=== PATIENT | male | born 1950 | race Hispanic/Latino ===

== ENCOUNTER → 2017-09-05 | Outpatient (CLI) | payer OTHER | END | disposition home or self-care (01) | LOC: RAH 10:31 | PROVIDERS: ATTEND Family Medicine | DX: R13.10 Dysphagia, unspecified (principal) | CPT/HCPCS: 74230; 92611 ==

== ENCOUNTER → 2018-06-11 | Outpatient (CLI) | payer OTHER | END | disposition home or self-care (01) | LOC: RAH 10:52 | PROVIDERS: ATTEND Family Medicine | DX: R13.10 Dysphagia, unspecified (principal) | CPT/HCPCS: 74230; 92611; G8996; G8997; G8998 ==

== ENCOUNTER 2022-05-14 06:23 | Day surgery (SDC) | payer OTHER ==
[2022-05-10 10:49] LABS: BASOPHILS % (AUTO) 0.4 % (0.0-5.0); EOSINOPHILS % (AUTO) 1.3 % (0.0-8.0); HEMATOCRIT 41.3 % (42-54); MEAN CORPUSCULAR HEMOGLOBIN 29.8 pg (27.0-33.0); MEAN CORPUSCULAR HGB CONC 34.9 g/dL (32.0-36.0); MEAN CORPUSCULAR VOLUME 85.5 fL (79-99); NEUTROPHILS % (AUTO) 73.1 % (40.0-77.0); PLATELET COUNT (AUTO) 202 K/uL (130-400); RED BLOOD CELL COUNT(AUTO) 4.83 MIL/uL (4.50-6.20); WHITE BLOOD COUNT (AUTO) 8.4 K/uL (4.8-10.8)
[2022-05-10 11:01] LABS: INR 0.95 (0.85-1.15); PROTHROMBIN TIME 10.4 SEC (9.6-11.6)
[2022-05-10 11:03] LABS: PARTIAL THROMBOPLASTIN TIME 24.2 SEC (26.3-35.5)
[2022-05-10 11:06] LABS: POTASSIUM 3.7 mmol/L (3.5-5.1)
[2022-05-10 11:20] LABS: APPEARANCE,URINE CLEAR (CLEAR); BILIRUBIN,URINE NEGATIVE (NEGATIVE); COLOR,URINE LIGHT-YELLOW (YELLOW); GLUCOSE, URINE (UA) >=1000 mg/dL (NEGATIVE); KETONES,URINE NEGATIVE (NEGATIVE); LEUKOCYTE ESTERASE ,URINE NEGATIVE Leu/uL (NEGATIVE); NITRATE,URINE NEGATIVE (NEGATIVE); OCCULT BLOOD,URINE NEGATIVE (NEGATIVE); PH,URINE 5.5 (5.0-8.0); PROTEIN,URINE 50 mg/dL (NEGATIVE); UROBILINOGEN,URINE 0.2 mg/dL (0.2-1.0)
[2022-05-10 11:25] LABS: SQUAMOUS EPITHELIAL CELL,UR FEW /HPF (0-2)
[2022-05-11 11:04] VITALS: BP 193/79
[2022-05-14] VITALS (12 sets, daily range): BP systolic 95–140; BP diastolic 49–81
[~2022-05-14] VITALS: Ht 165.1 cm; Wt 92.6 kg
[~2022-05-14 06:23] MED LIST: 0.9%NACL 1000ML 1,000 ML IV ONE
[2022-05-14] MEDS ORDERED: HEPARIN 10,000 UNIT/10ML (1,000 UNIT/ML) VIAL ONE (07:09)
[2022-05-14] MEDS ORDERED: IODIXANOL 320 MG/ML 100 ML VIAL ONE (07:09)
[2022-05-14] MEDS ORDERED: NITROGLYCERIN 50MG VIAL ONE (07:09)
[2022-05-14] MEDS ORDERED: LIDOCAINE HCL 1% 20 ML VIAL ONE (07:09)
[2022-05-14] MEDS ORDERED: MIDAZOLAM HCL 1 MG/ML 2ML VIAL ONE ×2 (07:09→09:47)
[2022-05-14] MEDS ORDERED: FENTANYL CITRATE PF 50 MCG/1 ML 2ML VIAL ONE (07:10)
[2022-05-14] MEDS ORDERED: GLIP10TA9 PO (07:33)
[2022-05-14] MEDS ORDERED: CLOP75TA32 PO (07:33)
[2022-05-14] MEDS ORDERED: TAMS-1 PO (07:33)
[2022-05-14] MEDS ORDERED: SERT-440 PO (07:33)
[2022-05-14] MEDS ORDERED: METF-446 PO (07:33)
[2022-05-14] MEDS ORDERED: CHOL100046 PO (07:33)
[2022-05-14] MEDS ORDERED: AEC81 PO (07:33)
[2022-05-14] MEDS ORDERED: EMPA25TA PO (07:33)
[2022-05-14] MEDS ORDERED: ATOR-2 PO (07:33)
[2022-05-14] MEDS ORDERED: LISI-662 PO (07:34)
[2022-05-14] MEDS ORDERED: HYDRALAZINE 20MG/ML VIAL ONE (09:15)
[2022-05-14] MEDS ORDERED: NICARDIPINE 25MG INJ IV ONE (09:52)
[2022-05-14] MEDS ORDERED: CLOPIDOGREL 300MG TAB ONE (09:53)
[2022-05-14] MEDS ORDERED: ASPIRIN 325MG EC TAB PO ONE (09:53)
[2022-05-14] MEDS ORDERED: GLUCAGON 1MG KIT 1 MG ML IM PRN (11:30)
[2022-05-14] MEDS ORDERED: 0.9%NACL 1000ML 1,000 ML IV SCH (11:30)
[2022-05-14] MEDS ORDERED: DEXTROSE 50%-WATER 50 ML DISP.SYRIN IV PRN (11:30)
== END 2022-05-14 17:45 | disposition home or self-care (01) ==
LOC: DAH 06:23
PROVIDERS: ATTEND Internal Medicine Cardiovascular Disease
DX: I70.248 Atherosclerosis of native arteries of left leg with ulceration of other part of lower leg (principal); E11.51 Type 2 diabetes mellitus with diabetic peripheral angiopathy without gangrene; I10 Essential (primary) hypertension; E78.5 Hyperlipidemia, unspecified; K21.9 Gastro-esophageal reflux disease without esophagitis; Z86.73 Personal history of transient ischemic attack (TIA), and cerebral infarction without residual deficits; Z82.49 Family history of ischemic heart disease and other diseases of the circulatory system; Z83.3 Family history of diabetes mellitus; Z80.9 Family history of malignant neoplasm, unspecified; Z87.891 Personal history of nicotine dependence; Z79.4 Long term (current) use of insulin; Z79.899 Other long term (current) drug therapy; Z79.01 Long term (current) use of anticoagulants; Z79.82 Long term (current) use of aspirin
CPT/HCPCS: 80048; 85025; 85610; 85730; 81001; 36415; 93005; 75716; 82948 ×3; C9766; C1769 ×5; C1894 ×2; C1760; C1887 ×2; C1893; C1724; C2623; C1727; J3010; J7030; J0360; J3490 ×2; J1644 ×2; J2250 ×2; Q9967; A4215; A4222; A4221; A4663; A4216; A4606; A4223 ×3; 96360; 96361; 99156; 99157

== ENCOUNTER 2022-06-21 07:13 | Day surgery (SDC) | payer OTHER ==
[2022-06-19 15:40] LABS: BASOPHILS % (AUTO) 0.5 % (0.0-5.0); EOSINOPHILS % (AUTO) 1.2 % (0.0-8.0); HEMATOCRIT 45.9 % (42-54); LYMPHOCYTES % (AUTO) 22.4 % (21.0-51.0); MEAN CORPUSCULAR HEMOGLOBIN 29.6 pg (27.0-33.0); MEAN CORPUSCULAR HGB CONC 34.2 g/dL (32.0-36.0); MEAN CORPUSCULAR VOLUME 86.6 fL (79-99); MONOCYTES % (AUTO) 8.1 % (3.0-13.0); NEUTROPHILS % (AUTO) 67.4 % (40.0-77.0); PLATELET COUNT (AUTO) 206 K/uL (130-400); RED CELL DISTRIBUTION WIDTH 12.2 % (11.0-15.5); WHITE BLOOD COUNT (AUTO) 8.5 K/uL (4.8-10.8)
[2022-06-19 15:48] LABS: CREATININE 1.1 mg/dL (0.5-1.5); POTASSIUM 4.2 mmol/L (3.5-5.1)
[2022-06-19 15:52] LABS: INR 0.97 (0.85-1.15); PROTHROMBIN TIME 10.6 SEC (9.6-11.6)
[2022-06-19 15:53] LABS: PARTIAL THROMBOPLASTIN TIME 24.8 SEC (26.3-35.5)
[2022-06-19 16:23] LABS: B-TYPE NATRIURETIC PEPTIDE 129 pg/mL (0-100)
[2022-06-20 09:22] VITALS: BP 143/90
[~2022-06-21] VITALS: Ht 165.1 cm; Wt 88.9 kg
[2022-06-21] VITALS (8 sets, daily range): BP systolic 122–173; BP diastolic 60–97
[~2022-06-21 07:13] MED LIST changes: +0.9% NACL 500ML IV.SOLN 500 ML IV SCH; -0.9%NACL 1000ML 1,000 ML IV ONE; +AEC81 PO; +ATOR-2 PO; +CHOL100046 PO; +CLOP75TA32 PO; +EMPA25TA PO; +GLIP10TA9 PO; +LISI-662 PO; +METF-446 PO; +SERT-440 PO; +TAMS-1 PO
[2022-06-21] MEDS ORDERED: 0.9%NACL 1000ML 1,000 ML IV ONE (07:56)
[2022-06-21] MEDS ORDERED: HEPARIN 10,000 UNIT/10ML (1,000 UNIT/ML) VIAL ONE (13:32)
[2022-06-21] MEDS ORDERED: NITROGLYCERIN 50MG VIAL ONE (13:32)
[2022-06-21] MEDS ORDERED: IODIXANOL 320 MG/ML 100 ML VIAL ONE (13:32)
[2022-06-21] MEDS ORDERED: FENTANYL CITRATE PF 50 MCG/1 ML 2ML VIAL ONE (13:33)
[2022-06-21] MEDS ORDERED: LIDOCAINE HCL 400MG/20ML VIAL ONE (13:33)
[2022-06-21] MEDS ORDERED: MIDAZOLAM HCL 1 MG/ML 2ML VIAL ONE (13:33)
[2022-06-21] MEDS ORDERED: NICARDIPINE 25MG INJ IV ONE (13:33)
[2022-06-21] MEDS ORDERED: CLOPIDOGREL 300MG TAB ONE (15:56)
[2022-06-21] MEDS ORDERED: GLUCAGON 1MG KIT 1 MG ML IM PRN (16:30)
[2022-06-21] MEDS ORDERED: DEXTROSE 50%-WATER 50 ML DISP.SYRIN IV PRN (16:30)
[2022-06-21] MEDS ORDERED: 0.9%NACL 1000ML 1,000 ML IV SCH (16:30)
== END 2022-06-21 19:51 | disposition home or self-care (01) ==
LOC: DAH 07:13
PROVIDERS: ATTEND Internal Medicine Cardiovascular Disease
DX: I70.248 Atherosclerosis of native arteries of left leg with ulceration of other part of lower leg (principal); E11.51 Type 2 diabetes mellitus with diabetic peripheral angiopathy without gangrene; I10 Essential (primary) hypertension; E78.5 Hyperlipidemia, unspecified; K21.9 Gastro-esophageal reflux disease without esophagitis; Z79.01 Long term (current) use of anticoagulants; Z79.899 Other long term (current) drug therapy; Z79.82 Long term (current) use of aspirin; Z79.84 Long term (current) use of oral hypoglycemic drugs; Z82.49 Family history of ischemic heart disease and other diseases of the circulatory system; Z80.9 Family history of malignant neoplasm, unspecified; Z79.4 Long term (current) use of insulin; Z86.73 Personal history of transient ischemic attack (TIA), and cerebral infarction without residual deficits; Z87.891 Personal history of nicotine dependence
CPT/HCPCS: 80048; 83880; 85025; 85610; 85730; 36415; 71045; 93005; 75710; 82948 ×2; C9774; C1894 ×4; C1769 ×3; C1887; C1724; C1727; J3010; J3490 ×3; J7030; J1644 ×2; J2250; Q9967; A4215; A4222; A4221; A4663; A4216; A4606; A4223 ×3; 99156; 99157

== ENCOUNTER → 2023-07-15 | Outpatient (CLI) | payer OTHER ==
[~2023-07-15] MED LIST changes: -0.9% NACL 500ML IV.SOLN 500 ML IV SCH
== END | disposition home or self-care (01) ==
LOC: SHCH 10:08
PROVIDERS: ATTEND Internal Medicine Cardiovascular Disease
DX: I87.2 Venous insufficiency (chronic) (peripheral) (principal); Z98.890 Other specified postprocedural states
CPT/HCPCS: 93971

== ENCOUNTER → 2023-12-02 | Outpatient (CLI) | payer OTHER | END | disposition home or self-care (01) | LOC: SHCH 11:16 | PROVIDERS: ATTEND Internal Medicine Cardiovascular Disease | DX: I87.2 Venous insufficiency (chronic) (peripheral) (principal) | CPT/HCPCS: 93971 ==

== ENCOUNTER → 2024-02-15 | Outpatient (CLI) | payer OTHER | END | disposition home or self-care (01) | LOC: SHCH 13:40 | PROVIDERS: ATTEND Internal Medicine Cardiovascular Disease | DX: R01.1 Cardiac murmur, unspecified (principal) | CPT/HCPCS: 93306 ==

== ENCOUNTER → 2024-03-25 | Outpatient (CLI) | payer OTHER ==
[~2024-03-25] MED LIST changes: +GLIP10TA16 PO; -GLIP10TA9 PO
[2024-03-25 22:01] VITALS: PULSE 88; RESP 16
[2024-03-25 22:31] VITALS: PULSE 88; RESP 16
[2024-03-25 22:59] VITALS: PULSE 86; RESP 18
[2024-03-25 23:30] VITALS: PULSE 77; RESP 12
[2024-03-25 23:55] VITALS: PULSE 75; RESP 18
[2024-03-26] VITALS (10 sets, daily range): PULSE 75–92; RESP 14–18
== END | disposition home or self-care (01) ==
LOC: SLP 19:57
PROVIDERS: ATTEND Internal Medicine Cardiovascular Disease
DX: G47.30 Sleep apnea, unspecified (principal)
CPT/HCPCS: 95810

== ENCOUNTER → 2024-04-01 | Outpatient (CLI) | payer OTHER ==
[2024-04-01] VITALS (10 sets, daily range): PULSE 71–94; RESP 5–22
[2024-04-02] VITALS (15 sets, daily range): PULSE 63–81; RESP 16–21
== END | disposition home or self-care (01) ==
LOC: SLP 19:41
PROVIDERS: ATTEND Internal Medicine Cardiovascular Disease
DX: G47.30 Sleep apnea, unspecified (principal)
CPT/HCPCS: 95811

== ENCOUNTER → 2025-06-03 | Outpatient (CLI) | payer OTHER ==
--- NOTE | 2025-06-03 14:00 | NUR ---
MBSS COMPLETED (OUTPATIENT). Deep non-transient penetration after the swallow with pudding textures and thin liquids via straw sips with no cough response. RECOMMEND: regular solids (NOTHING THAT MELTS: pudding, ice cream, jello, etc), thin liquids, and pills crushed with pureed as tolerated. COMPENSATORY STRATEGIES: 1. sit upright during oral intake 2. small bites/sips 3. slow oral intake 4. extra dry swallows 5. NO STRAWS 6. NOTHING THAT MELTS such as pudding, ice cream, jello, etc. 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 Pt complains of choking with oral intake and with oral secretions. Pt noted with missing teeth and slow rate of speech likely due to CVA. DIAGNOSTIC FINDINGS: Pt presented with mild pharyngeal dysphagia characterized by decreased tongue base retraction; delayed pharyngeal response trigger; decreased hyo-laryngeal elevation/excursion; decreased sensation evidenced by premature spillage to valleculae with spillover to pyriform sinuses; residue on base of tongue, valleculae, pyriform sinuses, and posterior pharyngeal wall cleared with extra dry swallows; resulting in deep non-transient penetrations after the swallow with pudding textures and thin liquids via straw sips with no cough response. NO aspirations observed. CASTING AND PASTING SUPERVISOR reviewed results and recommendations with patient/family. CASTING AND PASTING SUPERVISOR educated patient on risks and consequences of aspiration. Speech therapy not warranted at this time. Pt with Hx of completing speech therapy. Dysphagia best managed with diet modifications and compensatory strategies. All questions answered. Addendum: 06/03/[address] HARMEET MOELLER Amended: Links added.
--- NOTE | 2025-06-04 05:24 | HMCIMG ---
Fluoroscopy is utilized for the procedure. The total fluoroscopy time is 3 min. The interpreting radiologist was not present during the procedure. /[place]
== END | disposition home or self-care (01) ==
LOC: RAH 13:20
PROVIDERS: ATTEND Family Medicine
DX: R13.19 Other dysphagia (principal)
CPT/HCPCS: 74230; 92611